=== PATIENT | female | born 1955 ===

== ENCOUNTER 2017-02-25 06:58 | Emergency (ER) | payer MEDICAID, OTHER ==
[~2017-02-25] VITALS: Ht 154.9 cm; Wt 59.1 kg
[~2017-02-25 06:58] MED LIST: HYDR-4003 PO; OMEP20CA11 PO
[2017-02-25 07:08] VITALS: BP 112/75; PULSE 69; RESP 10; O2SAT 100
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
--- NOTE | 2017-02-25 07:52 | DRSVH ---
PROCEDURE: X-RAY CHEST, TWO VIEWS ([id number]) INDICATIONS: CHEST PAIN TECHNIQUE: 2 views of the chest were acquired. COMPARISON: [facility], CT, CT ANGIO CHEST PE, 09/17/2015, 17:18. [facility] , CR, CHEST 2VW, 07/17/2009, 19:05. [facility], CR, XR CHEST 1VW (PORTABLE), 09/17/2015, 14:49. FINDINGS: Surgical changes and devices: None. Lungs and pleura: No pleural effusions or pneumothorax. Lungs are clear. Mediastinum: Mediastinal contours are normal. Heart size is normal. Bones and chest wall: Nondisplaced fracture of the body of the sternum seen in the lateral view.. IMPRESSION: Nondisplaced fracture of the body of the sternum. Dictated by: Yahir Parra M.D. on 02/25/2017 at 7:44 Approved by: Yahir Parra M.D. on 02/25/2017 at 7:[address] Ruiz
[2017-02-25] MEDS ORDERED: HYDROcodone-APAP 10-325 mg PO ONE (08:40)
[2017-02-25] MEDS ORDERED: HYDR-4003 PO (08:51)
[2017-02-25 09:05] VITALS: BP 131/59; PULSE 72; RESP 16; O2SAT 98
== END 2017-02-25 09:08 | disposition home or self-care (01) ==
LOC: SED 06:58
DX: S22.22XA Fracture of body of sternum, initial encounter for closed fracture (principal); Y04.0XXA Assault by unarmed brawl or fight, initial encounter; Y93.89 Activity, other specified; Y92.89 Other specified places as the place of occurrence of the external cause; Y99.8 Other external cause status; I10 Essential (primary) hypertension; F17.200 Nicotine dependence, unspecified, uncomplicated; Z59.0 Homelessness

== ENCOUNTER 2017-03-22 12:29 | Emergency (ER) | payer MEDICAID, OTHER ==
[2017-03-22 12:32] VITALS: BP 126/77; PULSE 109; RESP 17; O2SAT 98
--- NOTE | 2017-03-22 12:39 | ED.REPORT ---
HPI-Hand Prob/Inj Date of Service Mar 22, 2017 ED Provider: Humble Ruiz MD Pt is a 61 year old female who presents to the ED c/o left wrist pain onset two days ago s/p falling on cement steps. She reports drinking alcohol when she fell , and states she drinks most days. Pt denies shoulder, elbow, head, back pain, or any other site of injury. Nursing Notes Stated Complaint: POSS BROKEN LT HAND Chief Complaint: Extremity Trauma Nursing Notes Reviewed: Yes Allergies: Coded Allergies: No Known Allergies (Verified Allergy, Unknown, 09/17/15) Scheduled Omeprazole (Omeprazole) 20 Mg Capsule.dr 20 MG PO BID Scheduled PRN Hydrocodone-Acetaminophen 5-325 mg (Hydrocodone-Acetaminophen 5-325 mg) 1 Each Tablet 1 TABLET PO Q6H PRN PRN For Pain Hydrocodone-Acetaminophen 5-325 mg (Hydrocodone-Acetaminophen 5-325 mg) 1 Each Tablet 1-2 TABLET PO Q4H PRN PRN For Pain General Time Seen by Provider: 12:54 Chief Complaint Hand injury left Hx Obtained From: Patient Arrived By: Walk-in Onset Occurred: 2 days ago Symptom Duration: Since onset Progression Since Onset: Constant Caused by: Fall on ground Quality: Painful Severity: Current: Mild Severity: Maximum: Mild Recent Healthcare: No recent doctor visit Similar Sx Previous: No Past Medical History Past Medical History diverticulitis Reports: Hypertension Past Surgical History Reports: , Cholecystectomy Social History Alcohol Use: 3-5 per day Drug Use: THC Ambulatory Status Independent Review of Systems No shoulder, elbow, head, or back pain. Musculoskeletal: Reports: Extremity pain Complete sys rev & neg: except as marked. Physical Exam Initial Vital Signs Vital Signs (First) Date Time Temp Pulse Resp B/P Pulse Ox O2 Delivery O2 Flow Rate FiO2 03/22/17 12:32 36.4 109 17 126/77 98 Room Air Initial VS: Reviewed, Vital signs normal Head / Eyes: Atraumatic, Normocephalic Neck: Full range of motion Respiratory: Breath sounds normal, Clear to auscultation, No respiratory distress Cardiovascular: Regular rate & rhythm, Heart sounds normal, Intact distal pulses Skin: Warm, Dry, No cyanosis Neurologic: Alert, Oriented, Nonfocal Psychiatric: Mood/affect normal, Behavior normal, Normal thought content Wrist / Hand: Neurologic intact, Vascular intact Left wrist: Large swelling over dorsal wrist and thumb Tenderness with axial loading of thumb Metacarpal bones nl Snuffbox tenderness present General/Constitutional: Awake, Alert, No acute distress, Cooperative, Not toxic appearing Upper Extremity / MS: Full range of motion, Neurologic intact, Vascular intact Shoulder and elbow nl Interpretation & Diagnostics X-Ray Interpretation Xray Interpretation: IMPRESSION: Intra-articular, nondisplaced distal radial fracture. Dictated by: Lesly Osorio M.D. on 03/22/2017 at 12:25 Approved by: Lesly Osorio M.D. on 03/22/2017 at 12:32 X-Ray Ordered: Wrist left Interpretation / Wet Read by: Interpret - Radiologist Procedures Splint Application - Fx Mgt Time: 14:20 Procedure Performed by: ED physician Precise Anatomic Location: L wrist Type of Immobilization: Volar short arm Post-Procedure / Complications: Cap refill normal, Post splint vascular nl, Post splint neuro nl, Condition improved, Tolerated procedure well, Patient stable Splint Post-Applic Eval Extremity Condition: Cap refill < 2 sec, Distal sensation intact, Distal motor Intact, No compartment syndrome Re-Eval/Medical Decision Re-Evaluation/Progress : Time of Eval: 14:20 Patient Status: Condition improved Re-Evaluation/Progress Note: Patient rechecked. Splint applied. Discussed plan for discharge. Patient understands and agrees with plan. F/U instructions and RTER warnings given. All questions addressed at this time. Counseled Regarding: Diagnosis, Lab results, Need for follow-up, When/why to return to ED Discharge & Departure Primary Impression: Closed left radial fracture Encounter type: initial encounter Radius location: distal Fracture morphology: other intra-articular Qualified Code: S52.572A - Other intraarticular fracture of lower end of left radius, initial encounter for closed fracture Disposition: Home Discharge Condition All VS Reviewed: Yes Condition: Stable Patient Instructions: Arm Fracture in Adults (ED), Splint Care (ED) Additional Instructions: You have a broken arm. Leave the splint on until you follow up with the orthopedic doctor or at least your primary care doctor. Use Tylenol or ibuprofen as needed for pain. Keep the arm elevated when you can as the pain will be less if you do this. If the splint seems too tight, unwrap it and rewrap it more loosely. Follow-up in the emergency department for new or worsening symptoms. Referrals: Picco,Kirby Santos Attestation Portions of this note were transcribed by Shell Solomon and Fran Triana. I, Dr. Ruiz, personally performed the history, physical exam and medical decision-making; I reviewed and confirmed the accuracy of the information in the transcribed note. Humble Ruiz MD Mar 22, 2017 12:39 Shell Solomon Mar 22, 2017 12:46 FRAN TRIANA Mar 22, 2017 13:21
--- NOTE | 2017-03-22 13:34 | DRSVH ---
PROCEDURE: X-RAY LEFT WRIST COMPLETE, MINIMUM THREE VIEWS ([id number]) INDICATIONS: trauma TECHNIQUE: 3 views of the wrist were acquired. COMPARISON: None. FINDINGS: Bones: There is a nondisplaced distal radial fracture with intra-articular extension. Scaphoid view: Not obtained. Soft tissues: No suspicious soft tissue calcifications. IMPRESSION: Intra-articular, nondisplaced distal radial fracture. Dictated by: Lesly Osorio M.D. on 03/22/2017 at 12:25 Approved by: Lesly Osorio M.D. on 03/22/2017 at 12:32
[2017-03-22] MEDS ORDERED: HYDROcodone-APAP 5-325 mg Tablet PO ONE (14:25)
[2017-03-22 14:55] VITALS: BP 105/63; PULSE 84; RESP 20; O2SAT 99
== END 2017-03-22 14:56 | disposition home or self-care (01) ==
LOC: SED 12:29
DX: S52.572A Other intraarticular fracture of lower end of left radius, initial encounter for closed fracture (principal); W10.8XXA Fall (on) (from) other stairs and steps, initial encounter; Y93.89 Activity, other specified; Y92.9 Unspecified place or not applicable; Y99.8 Other external cause status; I10 Essential (primary) hypertension